=== PATIENT | female | born 1945 | race Caucasian/White ===

== ENCOUNTER 2018-06-08 18:17 | Emergency (ER) | payer MEDICARE ==
[~2018-06-08] VITALS: Ht 157.5 cm; Wt 95.5 kg
[2018-06-08 18:34] VITALS: BP 191/84; TEMP 98.9
[2018-06-08 19:37] LABS: HEMATOCRIT 38.5 % (37.0-47.0); HEMOGLOBIN 12.7 g/dl (12.5-16.0); MEAN CELL VOLUME 91 fl (80.0-100.0); MEAN CORPUSCULAR HEMOGLOBIN 30 pg (27.0-31.0); MEAN CORPUSCULAR HGB CONC 33 g/dl (33.0-37.0); MEAN PLATELET VOLUME 10.4 fl (7.4-10.4); PLATELET COUNT 165 K/mm3 (130-400); RED BLOOD COUNT 4.24 M/mm3 (4.10-5.30); REDCELL DISTRIBUTION WIDTH-CV 12.9 % (11.5-14.5)
[2018-06-08 19:49] LABS: ALANINE AMINOTRANSFERASE 13 U/L (9-52); ALBUMIN 3.8 gm/dL (3.5-5.0); ALKALINE PHOSPHATASE 167 U/L (50-136); ANION GAP 6 mmol/L (7-16); AST,SGOT 19 U/L (15-37); BILIRUBIN,TOTAL 0.3 mg/dL (0.0-1.0); BLOOD UREA NITROGEN 17 mg/dL (7-17); C-REACTIVE PROTEIN 2.1 mg/dL (0.0-0.9); CARBON DIOXIDE 26 mmol/L (22-30); CHLORIDE 104 mmol/L (98-107); CREATININE, serum 0.99 (0.52-1.25); GLUCOSE 143 mg/dL (74-106); LIPASE 45 U/L (23-300); POTASSIUM 4.6 mmol/L (3.4-5.0); SODIUM 135 mmol/L (137-145); TOTAL PROTEIN 7.1 gm/dL (6.4-8.2)
[2018-06-08 19:55] LABS: ANISOCYTOSIS 1+; BAND 3 % (0-10); EOSINOPHIL 2 % (0-4); LYMPHOCYTE 44 % (20.0-51.0); NEUTROPHILS 23 % (42.0-75.2); NUCLEATED RED BLOOD CELL 1 (0-6); PLATELET ESTIMATE NORMAL (NORMAL)
[2018-06-08 20:01] LABS: TROPONIN-I < 0.012 ng/mL (0.000-0.035)
[2018-06-08 21:45] VITALS: PULSE 69
[2018-06-09] MEDS ORDERED: INSULIN HUMA100 U/ML SQ (05:02)
[2018-06-09] MEDS ORDERED: INSLANT SQ (05:03)
[2018-06-09] MEDS ORDERED: SYNTHROID0.112 MG/T PO (05:03)
[2018-06-09] MEDS ORDERED: BACTRIM DS 8001 TAB PO (05:04)
[2018-06-09] MEDS ORDERED: RESTORIL 1515 MG/CAP PO (05:04)
[2018-06-09] MEDS ORDERED: GLUCOTROL 5M5 MG/TAB PO (05:04)
[2018-06-09] MEDS ORDERED: LOPID 600M600 MG/TAB PO (05:05)
[2018-06-09] MEDS ORDERED: MEVACOR 20M20 MG/TAB PO (05:05)
[2018-06-09] MEDS ORDERED: FARXIGA10 PO (05:06)
[2018-06-09] MEDS ORDERED: ALEVE 220MG220 MG PO (05:06)
[2018-06-09] MEDS ORDERED: ASPIRIN E.C. 8181 MG PO (05:06)
== END 2018-06-08 21:45 | disposition home or self-care (01) ==
LOC: COL.ER 18:17
PROVIDERS: Emergency Medicine
DX: K94.09 Other complications of colostomy (principal); I10 Essential (primary) hypertension; E11.9 Type 2 diabetes mellitus without complications; Z90.89 Acquired absence of other organs; Z98.890 Other specified postprocedural states
CPT/HCPCS: J7030; Q9967

== ENCOUNTER 2019-05-15 14:31 | Emergency (ER) | payer MEDICARE ==
[~2019-05-15] VITALS: Ht 154.9 cm; Wt 86.4 kg
[~2019-05-15 14:31] MED LIST: ALEVE 220MG220 MG PO; ASPIRIN E.C. 8181 MG PO; BACTRIM DS 8001 TAB PO; FARXIGA10 PO; GLUCOTROL 5M5 MG/TAB PO; INSLANT SQ; INSULIN HUMA100 U/ML SQ; LOPID 600M600 MG/TAB PO; MEVACOR 20M20 MG/TAB PO; RESTORIL 1515 MG/CAP PO; SYNTHROID0.112 MG/T PO
[2019-05-15 14:36] VITALS: TEMP 98.1
[2019-05-15] MEDS ORDERED: AUSTEDO6 MG PO (14:52)
[2019-05-15 15:41] LABS: BASO # 0.1 (0.0-0.2); BASO % 0.6 % (0.0-2.0); EOS # 0.3 (0.0-0.7); EOS % 4.3 % (0-4.0); GRAN # 4.4 (1.4-6.5); GRAN % 56.3 % (42.2-75.2); HEMATOCRIT 39.6 % (37.0-47.0); HEMOGLOBIN 12.3 g/dl (12.5-16.0); LYMPH # 2.6 (1.2-3.4); LYMPH % 32.3 % (20.0-51.0); MEAN CELL VOLUME 95 fl (80.0-100.0); MEAN CORPUSCULAR HEMOGLOBIN 29 pg (27.0-31.0); MEAN CORPUSCULAR HGB CONC 31 g/dl (33.0-37.0); MEAN PLATELET VOLUME 10.3 fl (7.4-10.4); MONO # 0.5 (0.1-0.6); PLATELET COUNT 195 K/mm3 (130-400); RED BLOOD COUNT 4.18 M/mm3 (4.10-5.30); REDCELL DISTRIBUTION WIDTH-CV 12.8 % (11.5-14.5)
[2019-05-15 15:48] LABS: PROTHROMBIN TIME 11.2 SECONDS (9.7-12.8)
[2019-05-15 15:54] LABS: ALBUMIN 4.1 gm/dL (3.5-5.0); BILIRUBIN,TOTAL 0.5 mg/dL (0.0-1.0); CALCIUM 11.3 mg/dL (8.4-10.2); CREATININE, serum 0.59 (0.52-1.25); TOTAL PROTEIN 7.2 gm/dL (6.4-8.2)
[2019-05-15 16:05] LABS: TROPONIN-I 0.016 ng/mL (0.000-0.035)
[2019-05-15] MEDS ORDERED: K-TAB10 PO (18:04)
[2019-05-15] MEDS ORDERED: LASIX 20MG TABL20 MG PO (18:04)
[2019-05-15 18:13] VITALS: BP 122/61; PULSE 85
== END 2019-05-15 18:13 | disposition home or self-care (01) ==
LOC: COL.ER 14:31
PROVIDERS: Family Medicine
DX: I50.9 Heart failure, unspecified (principal); Z90.89 Acquired absence of other organs
CPT/HCPCS: J1940

== ENCOUNTER 2019-08-02 08:29 | Day surgery (SDC) | payer MEDICARE ==
[~2019-08-02] VITALS: Ht 154.9 cm; Wt 94.2 kg
[2019-08-02] VITALS (10 sets, daily range): BP systolic 105–159; BP diastolic 57–90; PULSE 62–78; TEMP 98.1
[~2019-08-02 08:29] MED LIST changes: +AUSTEDO6 MG PO; +K-TAB10 PO; +LASIX 20MG TABL20 MG PO
[2019-08-02] MEDS ORDERED: PRAVACHOL80 MG PO (09:02)
[2019-08-02] MEDS ORDERED: ZESTRIL2.5 MG PO (09:03)
[2019-08-02] MEDS ORDERED: LASIX 20MG TABL20 MG PO (09:06)
[2019-08-02] MEDS ORDERED: GLUCOTROL10 MG PO (09:07)
[2019-08-02] MEDS ORDERED: LANTUS100 U/ML SQ (09:08)
[2019-08-02] MEDS ORDERED: HUMALOG100 U/ML SQ (09:08)
[2019-08-02] MEDS ORDERED: SYNTHROID0.112 MG/T PO (09:09)
[2019-08-02] MEDS ORDERED: K-TAB10 PO (09:10)
[2019-08-02] MEDS ORDERED: RESTORIL 1515 MG/CAP PO (09:11)
[2019-08-02 09:29] LABS: HEMOGLOBIN 13.5 g/dl (12.5-16.0); MEAN CELL VOLUME 89 fl (80.0-100.0); MEAN CORPUSCULAR HEMOGLOBIN 29 pg (27.0-31.0); MEAN CORPUSCULAR HGB CONC 32 g/dl (33.0-37.0); MEAN PLATELET VOLUME 10.8 fl (7.4-10.4); PLATELET COUNT 185 K/mm3 (130-400); REDCELL DISTRIBUTION WIDTH-CV 12.5 % (11.5-14.5)
[2019-08-02 09:43] LABS: CALCIUM 11.7 mg/dL (8.4-10.2); CREATININE, serum 0.66 (0.52-1.25); POTASSIUM 4.7 mmol/L (3.4-5.0)
[2019-08-02 09:45] LABS: INR 0.9 (0.8-3.0); PROTHROMBIN TIME 10.5 SECONDS (9.7-12.8)
[2019-08-02 09:48] LABS: PARTIAL THROMBOPLASTIN TIME 30.6 SECONDS (26.0-37.0)
--- NOTE | 2019-08-02 10:33 | NUR ---
SEE MERGE FOR MEDICATION ADMINISTRATION TIMES AND INTRA AND POST SEDATION ASSESSMENTS.
--- NOTE | 2019-08-02 11:29 | NUR ---
Report from Holley GAYLE. Tband to left wrist with 14 cc air, good pulses and cap refill < 3 secs. VSS
[2019-08-02] MEDS ORDERED: LASIX 40MG TABL40 MG PO (11:30)
[2019-08-02] MEDS ORDERED: IMDUR 30MG30 MG/TAB PO (11:31)
[2019-08-02] MEDS ORDERED: PRINIVIL10 MG PO (11:31)
--- NOTE | 2019-08-02 14:10 | NUR ---
INT discontinued intact. Left Tband deflated of 14 cc and pressure dressing applied.
--- NOTE | 2019-08-02 14:20 | NUR ---
Discharge instructions given. Transferred to private car by leanne
== END 2019-08-02 14:20 | disposition home or self-care (01) ==
LOC: COL.CAR 08:29
PROVIDERS: Internal Medicine Cardiovascular Disease
DX: I25.118 Atherosclerotic heart disease of native coronary artery with other forms of angina pectoris (principal); I10 Essential (primary) hypertension; E11.40 Type 2 diabetes mellitus with diabetic neuropathy, unspecified; E78.5 Hyperlipidemia, unspecified; E03.9 Hypothyroidism, unspecified; G47.33 Obstructive sleep apnea (adult) (pediatric); M17.0 Bilateral primary osteoarthritis of knee; J45.909 Unspecified asthma, uncomplicated; G25.5 Other chorea; Z68.38 Body mass index [BMI] 38.0-38.9, adult; E66.9 Obesity, unspecified; Z87.891 Personal history of nicotine dependence; Z79.4 Long term (current) use of insulin; Z79.899 Other long term (current) drug therapy; Z90.49 Acquired absence of other specified parts of digestive tract; M54.30 Sciatica, unspecified side
CPT/HCPCS: J1644; J2250; J3010; Q9967

== ENCOUNTER → 2019-08-18 | Outpatient (CLI) | payer MEDICARE ==
[~2019-08-18] MED LIST changes: +CRESTOR 10MG10 MG PO; +GLUCOTROL10 MG PO; +HUMALOG100 U/ML SQ; +IMDUR 30MG30 MG/TAB PO; +LANTUS100 U/ML SQ; +LASIX 40MG TABL40 MG PO; +PLAVIX 75MG TAB75 MG PO; +PRAVACHOL80 MG PO; +PRINIVIL10 MG PO; +ZESTRIL2.5 MG PO
== END ==
LOC: COL.LAB 08:00
DX: Z20.828 Contact with and (suspected) exposure to other viral communicable diseases (principal)

== ENCOUNTER 2019-08-23 10:24 | Day surgery (SDC) | payer MEDICARE ==
[2019-08-23] VITALS (343 sets, daily range): BP systolic 93–153; BP diastolic 42–107; PULSE 67–90; TEMP 98–98.1; O2SAT 78–100
[~2019-08-23] VITALS: Ht 155 cm; Wt 92.6 kg
[~2019-08-23 10:24] MED LIST changes: -CRESTOR 10MG10 MG PO; -PLAVIX 75MG TAB75 MG PO
[2019-08-23] MEDS ORDERED: LASIX 40MG TABL40 MG PO (10:56)
[2019-08-23] MEDS ORDERED: IMDUR 30MG30 MG/TAB PO (10:59)
[2019-08-23] MEDS ORDERED: PRINIVIL10 MG PO (10:59)
[2019-08-23] MEDS ORDERED: CRESTOR 10MG10 MG PO (12:32)
[2019-08-23] MEDS ORDERED: PLAVIX 75MG TAB75 MG PO (12:32)
--- NOTE | 2019-08-23 13:02 | NUR ---
SEE MERGE DOCUMENTATION FOR MEDICATION ADMINISTRATION AND INTRA/POST PROCEDURE SEDATION ASSESSMENTS.
[2019-08-23 13:17] LABS: HEMATOCRIT 37.8 % (37.0-47.0); HEMOGLOBIN 12.4 g/dl (12.5-16.0); MEAN CELL VOLUME 88 fl (80.0-100.0); MEAN CORPUSCULAR HEMOGLOBIN 29 pg (27.0-31.0); MEAN CORPUSCULAR HGB CONC 33 g/dl (33.0-37.0); MEAN PLATELET VOLUME 10.6 fl (7.4-10.4); PLATELET COUNT 173 K/mm3 (130-400); RED BLOOD COUNT 4.28 M/mm3 (4.10-5.30); REDCELL DISTRIBUTION WIDTH-CV 12.5 % (11.5-14.5)
[2019-08-23 13:24] LABS: CREATININE, serum 0.68 (0.52-1.25); POTASSIUM 4.6 mmol/L (3.4-5.0)
--- NOTE | 2019-08-23 15:10 | NUR ---
Rates pain 6/10.
--- NOTE | 2019-08-23 15:40 | NUR ---
Pt continues to deny meds at this time states just wants to rest. Pain rated 8/10.
--- NOTE | 2019-08-23 19:25 | NUR ---
Report given to Eloisa GAYLE and care transfered. Pt did state pain was again 6/10. PRN morphine given along with crackers as requested.
--- NOTE | 2019-08-23 20:00 | NUR ---
Assisted up to bedside commode. Tolerated well. Cath site checked after returning to bed. Clean, dry and intact with no hematoma. Will continue to monitor.
--- NOTE | 2019-08-23 20:25 | NUR ---
Clarified medication orders with Dr. Valdez. Ok to restart home insulin dosages. Ok to hold evening dose if patient cannot tolerate PO intake at this time. Also reported that patient still reports chest pain which is worse with exertion. Reports no change in type or quality of pain. Patient currenlty socializing with visitor at bedside. Joking and appears to be in good spirits and no disress. No further orders at this time.
[2019-08-24] VITALS (328 sets, daily range): BP systolic 134–135; BP diastolic 55; PULSE 69–71; TEMP 98–98.4; O2SAT 90–100
--- NOTE | 2019-08-24 00:40 | NUR ---
Groin site assessed; clean, dry, and intact. Patient reports chest feels a "little better" since last assessment. Unable to rate on numerical scale. Patient also stated "can't be too bad since I have been able to doze off", when referring to her pain level. Will continue to monitor.
--- NOTE | 2019-08-24 05:15 | NUR ---
Assisted up to bathroom. Reports chest pain is unchanged and rates it at a 5/10. Reports intermittent nausea. Denies offer for Nitro or morphine prn . No change in cardiac rhythm noted; VS stable. Will continue to monitor.
--- NOTE | 2019-08-24 09:03 | NUR ---
JAIR met with the patient to discuss discharge plan. The patient lives in [place]. She states that her son, Ravin, and his girlfriend live with her. She could not recall Ravin's phone number. She reports independence with ADLs and has a cane, walker, electric wheelchair, and showerchair. The patient's PCP is Dr. Haris Wills and she receives her medications at [facility]. She reports no difficulties obtaining her meds. The patient was interested in talking to Financial Counseling and having them contact her at home. JAIR attempted to contact Lucy with Financial Counseling. JAIR left her a voicemail. The patient does not have advanced directives, but she was interested in obtaining a form for DPOA-HC. JAIR provided. The patient plans to return home with her son upon discharge. No additional needs at this time.
--- NOTE | 2019-08-24 12:50 | NUR ---
Discharge education and instructions reviewed with patient. Patient states she would prefer to call and schedule her own follow ups as she has several appointments in the next week. Stent card given.
--- NOTE | 2019-08-24 13:20 | NUR ---
Discharged to home via wheelchair to POV with son driving.
== END 2019-08-24 13:20 | disposition home or self-care (01) ==
LOC: COL.CAR 10:24 → ICU 15:13 → COL.CAR 08-24 13:20
PROVIDERS: Internal Medicine Cardiovascular Disease
DX: I25.110 Atherosclerotic heart disease of native coronary artery with unstable angina pectoris (principal); I97.88 Other intraoperative complications of the circulatory system, not elsewhere classified; I10 Essential (primary) hypertension; I25.9 Chronic ischemic heart disease, unspecified; J45.909 Unspecified asthma, uncomplicated; E78.5 Hyperlipidemia, unspecified; E11.40 Type 2 diabetes mellitus with diabetic neuropathy, unspecified; E03.9 Hypothyroidism, unspecified; G47.33 Obstructive sleep apnea (adult) (pediatric); G47.10 Hypersomnia, unspecified; M17.0 Bilateral primary osteoarthritis of knee; E66.9 Obesity, unspecified; Z68.38 Body mass index [BMI] 38.0-38.9, adult; Z79.899 Other long term (current) drug therapy; Z79.4 Long term (current) use of insulin; Z79.82 Long term (current) use of aspirin; Z93.3 Colostomy status; Z87.891 Personal history of nicotine dependence; Z79.02 Long term (current) use of antithrombotics/antiplatelets
CPT/HCPCS: OP; C9600; J1644; J1815; J2250; J2270; J2405; J3010; Q9967

== ENCOUNTER 2020-04-14 18:54 | Inpatient (IN) | payer MEDICARE, OTHER ==
[~2020-04-14] VITALS: Ht 154.9 cm; Wt 74.9 kg
[~2020-04-14 18:54] MED LIST changes: +CRESTOR 10MG10 MG PO; +PLAVIX 75MG TAB75 MG PO
[2020-04-14 19:40] LABS: BASO # 0.1 (0.0-0.2); BASO % 0.8 % (0.0-2.0); EOS # 0.4 (0.0-0.7); EOS % 6.5 % (0-4.0); GRAN # 2.2 (1.4-6.5); GRAN % 33.8 % (42.2-75.2); HEMATOCRIT 40.4 % (37.0-47.0); HEMOGLOBIN 13.6 g/dl (12.5-16.0); LYMPH # 3.1 (1.2-3.4); LYMPH % 49.1 % (20.0-51.0); MEAN CELL VOLUME 88 fl (80.0-100.0); MEAN CORPUSCULAR HEMOGLOBIN 30 pg (27.0-31.0); MEAN CORPUSCULAR HGB CONC 34 g/dl (33.0-37.0); MEAN PLATELET VOLUME 10.8 fl (7.4-10.4); MONO # 0.6 (0.1-0.6); MONO % 9.5 % (1.7-9.3); PLATELET COUNT 187 K/mm3 (130-400); RED BLOOD COUNT 4.57 M/mm3 (4.10-5.30); REDCELL DISTRIBUTION WIDTH-CV 12.5 % (11.5-14.5)
[2020-04-14 19:40] LABS: COLLECTION METHOD CATHETER
[2020-04-14 19:48] LABS: PROTHROMBIN TIME 11.7 SECONDS (9.7-12.8)
[2020-04-14 19:49] LABS: PH 5 (5-8); URINE APPEARANCE Hazy; URINE BACTERIA Occasional /hpf; URINE BILIRUBIN Negative (NEGATIVE); URINE BLOOD Negative (NEGATIVE); URINE COLOR Yellow; URINE GLUCOSE Negative (NEGATIVE); URINE KETONE Negative (NEGATIVE); URINE LEUKOCYTE ESTERASE 2+ (NEGATIVE); URINE NITRATE Negative (NEGATIVE); URINE PROTEIN(semi-quant) Negative (NEGATIVE); URINE RBC 0-2 /hpf; URINE UROBILINOGEN Negative (NEGATIVE)
[2020-04-14 19:51] LABS: ALBUMIN 3.6 gm/dL (3.5-5.0); BILIRUBIN,TOTAL 0.8 mg/dL (0.0-1.0); CALCIUM 11.3 mg/dL (8.4-10.2); CREATININE, serum 0.76 (0.52-1.25); POTASSIUM 3.3 mmol/L (3.4-5.0); TOTAL PROTEIN 6.6 gm/dL (6.4-8.2)
[2020-04-14 20:03] LABS: TROPONIN-I 0.019 ng/mL (0.000-0.035)
[2020-04-14] MEDS ORDERED: MIRALAX PA17 GM/Dose PO (22:16)
[2020-04-14] MEDS ORDERED: CEPHALEXIN500 M1 PO (22:16)
[2020-04-14] MEDS ORDERED: XANAX 0.5MG0.5 MG PO (22:23)
[2020-04-14] MEDS ORDERED: SENNA-LAX8.6 MG PO (22:27)
[2020-04-14] MEDS ORDERED: TOPROL XL 25MG25 MG PO (22:28)
[2020-04-14] MEDS ORDERED: ZANAFLEX CAPSULE2 MG PO (22:28)
[2020-04-14] MEDS ORDERED: FLOMAX 0.40.4 MG/CAP PO (22:28)
[2020-04-14] MEDS ORDERED: EMETROL PO (22:29)
[2020-04-14] MEDS ORDERED: DAZIDOX10 MG PO (22:29)
[2020-04-14] MEDS ORDERED: PROAIR HFA0.09 MG/AC IH (22:29)
[2020-04-14] MEDS ORDERED: MELATONIN5 M1 PO (22:30)
[2020-04-15] VITALS (7 sets, daily range): BP systolic 91–125; BP diastolic 41–60; PULSE 70–93; TEMP 97.3–98.2
[2020-04-15] MEDS ORDERED: LASIX 20MG TABL20 MG PO (00:08)
[2020-04-15] MEDS ORDERED: AUSTEDO12 MG PO (00:10)
[2020-04-15] MEDS ORDERED: KEPPRA1000 MG PO (00:12)
[2020-04-15] MEDS ORDERED: RESTORIL30 MG PO (00:21)
[2020-04-15] MEDS ORDERED: TYLENOL PM EXTR1 TA1 PO (00:25)
--- NOTE | 2020-04-15 01:34 | NUR ---
Patient transferred to medical floor room 355 at 23:30 pm. Patient A/O x3. Patient reports her pain to her bilateral legs 10/10. Updated SHANNAN Del Castillo and received order for PRN pain meds. Patient denies chest pain, SOB, N/V, or dizziness. Patient has uncontrolled movement of right arm. Assessment completed and charted. PRN pain meds given per MAY. Heel protectors on to bilateral heels for redness, elbow protector applied to her right elbow to prevent skin breakdown. All scheduled meds given per MAY. Patient gets nauseous around 01:20 am. Called SHANNAN Del Castillo and received PRN order for nausea. PRN Zofran administered at 01:30 am. Purewick external catheter applied to her perineal area. Call light within reach. Will continue to monitor.
--- NOTE | 2020-04-15 03:01 | NUR ---
PRN Oxycodone given at 02:49 am for bilateral leg pain of 7/10. Padded bilateral bed with foam protectors. Bed in lowest position, bed alarms on, Seizure precautions maintained.
--- NOTE | 2020-04-15 06:24 | NUR ---
Patient hasn't been voiding since she came to medical floor around 23:30 pm. Bladder scan done this morning around 4am and it shows 250ml urine retention. Patient reported she hasn't beed eating or drinking all day yesterday. Patient did drink about 240ml of water last night. Colostomy bag empty. No stool noted. IVF running well at 125ml/hr to her right forearm IV site. Call light within reach. Will give report to day shift RN.
--- NOTE | 2020-04-15 07:00 | NUR ---
Report received from NALINI Schwartz. Pt in bed, boosted, ordered breakfast and repositioned for comfort.
[2020-04-15 08:20] LABS: BASO % 0.8 % (0.0-2.0); EOS # 0.3 (0.0-0.7); EOS % 5.8 % (0-4.0); GRAN # 1.9 (1.4-6.5); GRAN % 35.6 % (42.2-75.2); HEMATOCRIT 37.1 % (37.0-47.0); HEMOGLOBIN 12.3 g/dl (12.5-16.0); LYMPH # 2.6 (1.2-3.4); MEAN CELL VOLUME 89 fl (80.0-100.0); MEAN CORPUSCULAR HEMOGLOBIN 30 pg (27.0-31.0); MEAN CORPUSCULAR HGB CONC 33 g/dl (33.0-37.0); MEAN PLATELET VOLUME 11.5 fl (7.4-10.4); MONO # 0.5 (0.1-0.6); MONO % 8.6 % (1.7-9.3); PLATELET COUNT 180 K/mm3 (130-400); RED BLOOD COUNT 4.17 M/mm3 (4.10-5.30); REDCELL DISTRIBUTION WIDTH-CV 12.6 % (11.5-14.5)
[2020-04-15 08:24] LABS: CREATININE, serum 0.81 (0.52-1.25); POTASSIUM 4.3 mmol/L (3.4-5.0)
--- NOTE | 2020-04-15 08:53 | NUR ---
Assessment charted. Pt states legs are feeling better today, states pain is minimal. IVF to RFA. Pt is alert and oriented. RUE is very active, constantly moving in bed, RLE moves some too but rarely. Sacrem is reddened but blanches, purewick in place but pt has not voided since arriving to floor. Will continue to monitor.
--- NOTE | 2020-04-15 11:36 | NUR ---
Chaplain purvis and offered support with patient.
--- NOTE | 2020-04-15 14:13 | NUR ---
SW met with patient to conduct intake assessment. Patient raquel in [place] with son Ravin Lewis (P# [phone]). Patient did not have DPOA paperwork but wished to designate son Ravin Lewis as DPOA-HC. SW contacted Ravin Lewis who agrees to be DPOA-HC. SW filled out paperwork. NALINI Rosa and JAIR witnessed patient signature. Original was placed on the chart, and copies made were given to patient. Patient currently lives at home and has assistance with ADLs through [facility]. Emmett (P# [phone]) reports that patient receives PT twice a week, OT once a week, and a bath aid comes twice a week. Emmett reported that family does not feel they can adequately meet her care needs at this time even with home health. Patient agrees with this and does not feel comfortable going home at this time. JAIR spoke with physician Dr. Alexander, who feels the patient should go to prison. SW requested PT/OT evaluation for the purposes of sending referrals to patient's facilities of choice. Patient freely chooses [facility] (1st), [facility] (2nd) and [facility] (3rd). SW will send referrals when seen by PT/OT. SW addressed patient status with SUPERVISOR BAKING Debora who will change patient status to inpatient as needs have increased and progressed. Emmett and Ravin reported that patient uses CPAP, wheelchair, cane, and walker at home. Patient's PCP is Dr. Reynoos in [place], and she uses [facility] pharmacy in [place] for medications. Current plan is to go to prison at discharge. Social work will continue to follow as needs progress and place referrals when order for PT/OT is placed and eval completed.
--- NOTE | 2020-04-15 18:17 | NUR ---
Pt only voided 1 time over shift, bladder scan this evening revealed maximum of 350 mls. Pt resting in bed, turned every 2 hours per request. Denies needs, PRN pain and anxiety meds given. Will give bedside shift report to nightshift dia who will resume care.
--- NOTE | 2020-04-15 21:35 | NUR ---
Patient had some cookies and coffee before bed. Night medications administered. Patient has no complaints of pain. CPAP is placed on patient for bed. No other needs at this time. Call light is within reach.
--- NOTE | 2020-04-16 03:32 | NUR ---
Patient called and requested a pain pill for pain in her legs. Oxycodone adminstered. Patient is repositioned and going back to sleep. Patient refused to put CPAP back on.
[2020-04-16 04:19] VITALS: BP 97/78; PULSE 73; TEMP 97.3
--- NOTE | 2020-04-16 05:32 | NUR ---
Patient slept throughout the night with minimal complaints. Emptied air from her colostomy several times throughout the night. New purewick was applied this morning. Patient's right arm has a lot of involuntary movement when she is awake, but is still while she is asleep. Will report off to day shift.
--- NOTE | 2020-04-16 07:00 | NUR ---
Report received from NALINI Del Castillo. pT in bed resting, denies needs, will continue to monitor.
[2020-04-16 08:29] LABS: BASO % 0.7 % (0.0-2.0); EOS # 0.4 (0.0-0.7); EOS % 7.5 % (0-4.0); GRAN # 2.1 (1.4-6.5); GRAN % 35.2 % (42.2-75.2); HEMATOCRIT 39.5 % (37.0-47.0); HEMOGLOBIN 12.8 g/dl (12.5-16.0); LYMPH # 2.9 (1.2-3.4); LYMPH % 48.8 % (20.0-51.0); MEAN CELL VOLUME 90 fl (80.0-100.0); MEAN CORPUSCULAR HEMOGLOBIN 29 pg (27.0-31.0); MEAN CORPUSCULAR HGB CONC 32 g/dl (33.0-37.0); MEAN PLATELET VOLUME 10.7 fl (7.4-10.4); MONO # 0.5 (0.1-0.6); MONO % 7.6 % (1.7-9.3); PLATELET COUNT 155 K/mm3 (130-400); RED BLOOD COUNT 4.38 M/mm3 (4.10-5.30); REDCELL DISTRIBUTION WIDTH-CV 12.7 % (11.5-14.5)
[2020-04-16 08:38] LABS: CALCIUM 11.7 mg/dL (8.4-10.2); CREATININE, serum 0.99 (0.52-1.25)
[2020-04-16 08:42] LABS: POTASSIUM 3.7 mmol/L (3.4-5.0)
--- NOTE | 2020-04-16 09:26 | NUR ---
Assessment charted. Pt feeling pain in L foot medial side that has been an ongoing issue for some years. She states it often flares up at home and they have been unable to define it or treat it at home. PRN muscle relaxer and pain med given. PT resting in bed, turned for comfort. Pt feels nauseated. Got set up in bed with IPAD on soothing sounds, meds given and pt resting. INT to RFA. RUE still has spastic uncontrolled movements constantly while awake but not at rest. Will continue to monitor.
[2020-04-16 11:27] VITALS: BP 94/23; PULSE 70; TEMP 97.9
--- NOTE | 2020-04-16 11:48 | NUR ---
Changed pouch and wafer with 2.25". Pt tolerated well
[2020-04-16 16:11] VITALS: BP 89/42; PULSE 73; TEMP 98.3
[2020-04-16 20:00] VITALS: BP 116/36; PULSE 85; TEMP 98
--- NOTE | 2020-04-16 20:15 | NUR ---
PATIENT WAS RECEIVED IN BED FAIR,DUE MEDS GIVEN,ASSESSMENT DONE.NO OTHER NEEDS AT THIS TIME.
[2020-04-16 22:38] VITALS: BP 116/36; PULSE 85; TEMP 98
[2020-04-17] VITALS: BP 114/48; PULSE 70; TEMP 98.2
[2020-04-17 04:23] VITALS: BP 94/35; PULSE 76; TEMP 97.4
--- NOTE | 2020-04-17 05:25 | NUR ---
PATIENT IS FAIR,DUE MEDS GIVEN.REPORTED OF BACKPAINS AT 8/10 ALVINO GIVEN.NO OTHER NEEDS AT THIS TIME.
--- NOTE | 2020-04-17 05:29 | NUR ---
PATIENT HAD A FAIR NIGHT,DENIES PAIN.DUE MEDS GIVEN.NO OTHER NEEDS AT THIS TIME.
[2020-04-17 07:37] VITALS: BP 120/46; PULSE 72; TEMP 98.1
[2020-04-17 08:40] LABS: CALCIUM 11.7 mg/dL (8.4-10.2); CREATININE, serum 1.03 (0.52-1.25); POTASSIUM 3.7 mmol/L (3.4-5.0)
[2020-04-17 08:49] LABS: INR 1.1 (0.8-3.0); PROTHROMBIN TIME 12.6 SECONDS (9.7-12.8)
[2020-04-17 08:50] LABS: BASO % 0.8 % (0.0-2.0); EOS # 0.4 (0.0-0.7); EOS % 8.7 % (0-4.0); GRAN # 1.5 (1.4-6.5); GRAN % 28.5 % (42.2-75.2); HEMOGLOBIN 12.4 g/dl (12.5-16.0); LYMPH # 2.7 (1.2-3.4); LYMPH % 53.7 % (20.0-51.0); MEAN CELL VOLUME 92 fl (80.0-100.0); MEAN CORPUSCULAR HEMOGLOBIN 30 pg (27.0-31.0); MEAN CORPUSCULAR HGB CONC 33 g/dl (33.0-37.0); MEAN PLATELET VOLUME 11.3 fl (7.4-10.4); MONO # 0.4 (0.1-0.6); MONO % 8.1 % (1.7-9.3); PLATELET COUNT 160 K/mm3 (130-400); RED BLOOD COUNT 4.13 M/mm3 (4.10-5.30); REDCELL DISTRIBUTION WIDTH-CV 12.7 % (11.5-14.5)
--- NOTE | 2020-04-17 10:11 | NUR ---
Pt awake and alert upon entry, some C/O pain in her BLE. Bed change provided, Purewick changed pericare provided. Shift assessments complete, mleft Pt call light in reach, bed in lowest position.
[2020-04-17 12:14] VITALS: BP 119/50; PULSE 79; TEMP 98.3
--- NOTE | 2020-04-17 13:59 | NUR ---
First visit from the pulp machine operator. No needs right now.
--- NOTE | 2020-04-17 15:36 | NUR ---
Checked colostomy device, no change needed, emptied 75ml from bag.
--- NOTE | 2020-04-17 16:37 | NUR ---
[facility], [facility] Yoon, and [facility] have declined the patient post acute rehab.
[2020-04-17 16:58] VITALS: BP 104/43; PULSE 67; TEMP 98.3
[2020-04-17 20:00] VITALS: BP 102/41; PULSE 72; TEMP 97.4
--- NOTE | 2020-04-17 20:00 | NUR ---
PATIENT WAS CALM IN THE ROOM REPORTED PAIN AT 9/10.MEDS GIVEN PER MAY.ASSESSMENT DONE.NO OTHER NEEDS AT THIS TIME.
[2020-04-18] VITALS (7 sets, daily range): BP systolic 86–123; BP diastolic 29–52; PULSE 65–95; TEMP 97.3–98.6
[2020-04-18 06:57] LABS: HEMOGLOBIN 11.7 g/dl (12.5-16.0); MEAN CELL VOLUME 92 fl (80.0-100.0); MEAN CORPUSCULAR HEMOGLOBIN 29 pg (27.0-31.0); MEAN CORPUSCULAR HGB CONC 32 g/dl (33.0-37.0); MEAN PLATELET VOLUME 11.2 fl (7.4-10.4); PLATELET COUNT 144 K/mm3 (130-400); REDCELL DISTRIBUTION WIDTH-CV 12.7 % (11.5-14.5)
[2020-04-18 07:04] LABS: HEMATOCRIT 36.6 % (37.0-47.0)
[2020-04-18 07:13] LABS: CALCIUM 11.7 mg/dL (8.4-10.2); CREATININE, serum 0.82 (0.52-1.25); POTASSIUM 3.9 mmol/L (3.4-5.0)
--- NOTE | 2020-04-18 07:14 | NUR ---
PATIENT REMAINS FAIR,DUE MEDS GIVEN.NO NEEDS AT THIS TIME
--- NOTE | 2020-04-18 08:25 | NUR ---
Pt sleeping upon entry, no C/O pain at this time, vomited while taking morning medications 30ml. Shift assessments complete, left Pt call light in reach, bed in lowest position.
[2020-04-18 11:29] LABS: ANA SCREEN with REFLEX Negative (Negative)
--- NOTE | 2020-04-18 14:43 | NUR ---
Quilt Stuffer attempted to contact Dr. Wills' nurse. The office is closed and will be open on Friday, 04/19. Will attempt at that time.
--- NOTE | 2020-04-18 16:35 | NUR ---
Predatory Animal Exterminator met with the patient to discuss discharge disposition. SW informed the patient of the of [facility], [facility], and denials. She is agreeable to sending referrals anywhere. She does not feel like she can go home safely. JAIR faxed referrals to [facility], [facility], [facility], [facility], [place], [place], [place], [place], [facility] [place], [facility], [facility], [facility], [facility], and [facility]. Awaiting responses.
--- NOTE | 2020-04-18 18:37 | NUR ---
Pt resting in the room today, still has some minor bleeding noted from previous lovenox injection site, bandage changed, bed bath provided, bedding changed. No other issues noted. VS haqve remained stable.
--- NOTE | 2020-04-18 20:00 | NUR ---
PATIENT WAS RECEIVED FAIR IN BED.DUE MEDS GIVEN,ASSESSMENT DONE.REPORTED OF PAIN ON THE RT ELBOW DUE TO THE UNCONTROLLED MOVEMENT.FORM DRESSING APPLIED PATIENT LEFT COMFORTABLE.NO OTHER NEEEDS AT THIS TIME
[2020-04-19] VITALS (7 sets, daily range): BP systolic 91–121; BP diastolic 39–56; PULSE 55–89; TEMP 97.4–98.6
[2020-04-19 07:12] LABS: BASO % 0.5 % (0.0-2.0); EOS # 0.4 (0.0-0.7); EOS % 6.1 % (0-4.0); GRAN # 2.1 (1.4-6.5); GRAN % 34.3 % (42.2-75.2); HEMOGLOBIN 11.2 g/dl (12.5-16.0); LYMPH # 3.1 (1.2-3.4); LYMPH % 50.5 % (20.0-51.0); MEAN CELL VOLUME 92 fl (80.0-100.0); MEAN CORPUSCULAR HEMOGLOBIN 30 pg (27.0-31.0); MEAN CORPUSCULAR HGB CONC 33 g/dl (33.0-37.0); MEAN PLATELET VOLUME 11.2 fl (7.4-10.4); MONO # 0.5 (0.1-0.6); MONO % 8.3 % (1.7-9.3); PLATELET COUNT 137 K/mm3 (130-400); RED BLOOD COUNT 3.74 M/mm3 (4.10-5.30); REDCELL DISTRIBUTION WIDTH-CV 12.6 % (11.5-14.5)
[2020-04-19 07:18] LABS: HEMATOCRIT 34.5 % (37.0-47.0)
[2020-04-19 07:19] LABS: ALBUMIN 2.9 gm/dL (3.5-5.0); BILIRUBIN,TOTAL 0.4 mg/dL (0.0-1.0); CALCIUM 11.3 mg/dL (8.4-10.2); CREATININE, serum 0.92 (0.52-1.25); POTASSIUM 3.9 mmol/L (3.4-5.0); TOTAL PROTEIN 5.7 gm/dL (6.4-8.2)
--- NOTE | 2020-04-19 08:40 | NUR ---
Assessment as charted. Pt complains of pain to back of knee bilaterally, notified primary nurse. INT to Rt forearm, telemetry is on. Pt resting in bed with eyes closed, call light within reach.
--- NOTE | 2020-04-19 10:07 | NUR ---
Medical Examiner contacted the patient's son, Ravin to provide an update regarding placement. Ravin was agreeable to the referrals sent out and understands that when there is a bed available the patient will transition to post acute rehab. JAIR discussed Medicaid application Ravin. Ravin reports the patient has been denied in the past due to income but was willing to have the patient try again. Kenyetta from [facility] in [place] requesting copy of insurance cards. Cards faxed. Rosy from [facility] [place] reports they received a referral on the patient prior to discharge from [facility] and they had accepted her at that time. Rosy will have her team review the referral then inform JAIR of decision. Lucy Herrera, financial counselor consulted. JAIR collaborted the above information with the team.
--- NOTE | 2020-04-19 10:13 | NUR ---
Kenyetta from [facility] reports they have declined the patient for post acute rehab.
--- NOTE | 2020-04-19 10:16 | NUR ---
Medical Services Coordinator faxed referral to [facility].
[2020-04-19 11:32] LABS: CERULOPLASMIN 25 mg/dL (20-60)
--- NOTE | 2020-04-19 16:07 | NUR ---
Rosy from [facility] reports they can accept the patient on Friday, 04/21 and diamond picker will be at 1100. Lucy Herrera with finance reports she has completed the Medicaid application with the patient. JAIR collaborated with Lucy Herrera to have releases signed. JAIR contacted the patient's son, Ravin and he was inagreeance. JAIR collaborated the above information with hospitalist, he was in agreeance.
--- NOTE | 2020-04-19 21:00 | NUR ---
Patient assessed at this time. Alert and oriented x 4, and able to make needs known. Reports level 9 pain to bilateral legs. Given PRN Roxicodone for pain as requested. Peripheral INT to right forearm. Denies SOB and dyspnea. LS CTA. Respirations even and unlabored. HRR. Telemetry in place. Capillary refill less than 3 seconds. Non-tenting skin turgor. BSAx4. Abdomen soft and non-tender. No edema. Redness to coccyx, blanchable. Redness to right elbow from rubbing due to uncontrolled movements to right arm. Two mepilexs in place for protection, wrapped with gauze wrap to hold mepilexs in place as requested by patient. Shemar boots bilateral feet. Colostomy bag intact. Voices no questions, needs, or concerns at this time. Resting in bed with call light within reach.
[2020-04-20] VITALS (7 sets, daily range): BP systolic 87–118; BP diastolic 40–74; PULSE 58–78; TEMP 97.3–98.5
--- NOTE | 2020-04-20 05:26 | NUR ---
Patient has not voiced any further complaints of pain or discomfort at this time. Voices no questions, needs, or concerns at this time. Resting in bed with call light within reach.
[2020-04-20 07:12] LABS: BASO % 0.5 % (0.0-2.0); EOS # 0.3 (0.0-0.7); GRAN # 2.2 (1.4-6.5); GRAN % 38.3 % (42.2-75.2); HEMATOCRIT 37.8 % (37.0-47.0); LYMPH # 2.6 (1.2-3.4); LYMPH % 45.6 % (20.0-51.0); MEAN CELL VOLUME 92 fl (80.0-100.0); MEAN CORPUSCULAR HEMOGLOBIN 29 pg (27.0-31.0); MEAN CORPUSCULAR HGB CONC 32 g/dl (33.0-37.0); MEAN PLATELET VOLUME 10.9 fl (7.4-10.4); MONO # 0.5 (0.1-0.6); MONO % 9.2 % (1.7-9.3); PLATELET COUNT 144 K/mm3 (130-400); RED BLOOD COUNT 4.11 M/mm3 (4.10-5.30); REDCELL DISTRIBUTION WIDTH-CV 12.7 % (11.5-14.5)
[2020-04-20 07:24] LABS: CALCIUM 11.5 mg/dL (8.4-10.2)
--- NOTE | 2020-04-20 07:42 | NUR ---
Assessment complete. Patient sleeping at time of assessment. No signs or symtpoms of discomfort at this time. Heel protectors are in place at this time. Mepilex on right elbow at this time to prevent breakdown from involuntary body movements. IV site CD&I. Fall precautions are in place. Will continue to monitor. CAll light is in reach.
--- NOTE | 2020-04-20 18:33 | NUR ---
Patient has had an uneventful shift. No complaints of pain until close to end of shift. PRN oxycodone was provided for this. Patient was able to nap through most of the day. Minimal needs. Continuing to monitor. Call light is in reach.
--- NOTE | 2020-04-20 23:37 | NUR ---
2115- alert and ox4. Assessment and vitals obtained. Denies chest pain, dizzy or soa. C/O headache and pain in legs. Meds provided. CPAP set up for sleep. Colstomy bag emptied. Mepilex to elbows. Left arm very spastic, pm meds given. Needs met. Call light wi reach.
[2020-04-21 00:53] VITALS: BP 115/46; PULSE 74; TEMP 97.8
[2020-04-21 05:06] VITALS: BP 95/41; PULSE 59; TEMP 98.3
--- NOTE | 2020-04-21 05:12 | NUR ---
PT RESTED ALL NIGHT, RESP EVEN AND UNLABORED.
[2020-04-21] MEDS ORDERED: VITAMIN D 50,1.25 MG PO (07:45)
[2020-04-21] MEDS ORDERED: DAZIDOX10 MG PO (07:45)
[2020-04-21] MEDS ORDERED: LYRICA 75MG CAP75 MG PO (07:45)
[2020-04-21] MEDS ORDERED: XANAX 0.5MG0.5 MG PO (07:45)
[2020-04-21] MEDS ORDERED: RESTORIL30 MG PO (07:45)
[2020-04-21] MEDS ORDERED: KEPPRA 500MG500 MG PO (09:13)
[2020-04-21] MEDS ORDERED: PRIL40 PO (09:19)
--- NOTE | 2020-04-21 10:50 | NUR ---
Dc peripheral IV to left hand and telemetry due to discharge to [facility] in [place].Bed bath provided with total care. Pateinet able to make needs and wishes known. Denies need for anything at this time. Resting in bed with call light in reach for use.
--- NOTE | 2020-04-21 11:17 | NUR ---
The patient discharged today, 04/21 to [facility]. Transporation is at 1100. Budget Engineer faxed discharge orders. There are no additional needs.
--- NOTE | 2020-04-21 11:30 | NUR ---
Patient left the floor at this time. All belongings were sent with patient. Report has been called to recieveing facility. PAtient was aware of trasport and her destination. No further questions or concerns.
== END 2020-04-21 12:22 | DRG 74 ==
LOC: COL.ER 18:54 → MEDICAL 22:10
PROVIDERS: Nurse Practitioner; Physician Assistant; Psychiatry & Neurology Neurology; ADMIT Internal Medicine
DX: E11.42 Type 2 diabetes mellitus with diabetic polyneuropathy (principal); I50.22 Chronic systolic (congestive) heart failure; Q21.1 Atrial septal defect; N39.0 Urinary tract infection, site not specified; E78.5 Hyperlipidemia, unspecified; I25.10 Atherosclerotic heart disease of native coronary artery without angina pectoris; I11.0 Hypertensive heart disease with heart failure; F02.80 Dementia in other diseases classified elsewhere, unspecified severity, without behavioral disturbance, psychotic disturbance, mood disturbance, and anxiety; G40.909 Epilepsy, unspecified, not intractable, without status epilepticus; E87.6 Hypokalemia; E83.52 Hypercalcemia; I25.5 Ischemic cardiomyopathy; E03.9 Hypothyroidism, unspecified; G25.5 Other chorea; J45.909 Unspecified asthma, uncomplicated; G25.89 Other specified extrapyramidal and movement disorders; Z86.73 Personal history of transient ischemic attack (TIA), and cerebral infarction without residual deficits; Z43.3 Encounter for attention to colostomy; Z79.82 Long term (current) use of aspirin; Z87.891 Personal history of nicotine dependence; Z95.5 Presence of coronary angioplasty implant and graft
CPT/HCPCS: OP; 99231-AI; 99232-AI; 99239; A9585; C9113; J1650; J2405; J7030; Q9967